=== PATIENT | female | born 1975 | race American Indian/Alaskan Native ===

== ENCOUNTER 2019-03-25 20:55 | Emergency (ER) | payer BC ==
[2019-03-25] MEDS ORDERED: ASPIRIN PO ONE (21:45)
--- NOTE | 2019-03-25 21:47 | Event Note ---
ED Screening Note Date of service: 03/25/19 Time: 21:43 ED Screening Note: This is a 44 y.o. F. that presents to the ER with chest pain, dizziness, and numbness on LUE. Patient states symptoms started when she got off work at 1900 tonight. She was driving and felt dizzy. PMH of DM2 and HTN This initial assessment/diagnostic orders/clinical plan/treatment(s) is/are subject to change based on patients health status, clinical progression and re- assessment by fellow clinical providers in the ED. Further treatment and workup at subsequent clinical providers discretion. Patient/guardian urged not to elope from the ED as their condition may be serious if not clinically assessed and managed. Initial orders include: Labs, ekg, & cxr
[2019-03-25 22:14] LABS: Basophils # (Auto) 0.1 K/mm3 (0.0-0.1); Basophils % (Auto) 1.1 % (0.0-1.8); Eosinophils # (Auto) 0.4 K/mm3 (0.0-0.4); Eosinophils % (Auto) 5.2 % (0.0-4.3); Hematocrit 40.1 % (30.3-42.9); Hemoglobin 13.6 gm/dl (10.1-14.3); Lymphocytes # (Auto) 3.6 K/mm3 (1.2-5.4); Lymphocytes % (Auto) 43.4 % (13.4-35.0); Mean Corpuscular HGB Conc 34 % (30-34); Mean Corpuscular Volume 89 fl (79-97); Monocytes # (Auto) 0.5 K/mm3 (0.0-0.8); Monocytes % (Auto) 6.5 % (0.0-7.3); Platelet Count 311 K/mm3 (140-440); Red Blood Count 4.53 M/mm3 (3.65-5.03)
[2019-03-25 22:30] LABS: BUN/Creatinine Ratio 18; Blood Urea Nitrogen 11 mg/dL (7-17); Calcium 9.2 mg/dL (8.4-10.2); Hemolysis Index 0
--- NOTE | 2019-03-25 22:46 | XRay Report ---
CHEST 1 VIEW INDICATION / CLINICAL INFORMATION: Chest Pain. COMPARISON: None available. FINDINGS: SUPPORT DEVICES: None. HEART / MEDIASTINUM: No significant abnormality. LUNGS / PLEURA: No significant pulmonary or pleural abnormality. No pneumothorax. ADDITIONAL FINDINGS: No significant additional findings. IMPRESSION: 1. No acute findings. Signer Name: Leo Hwang MD Signed: 03/25/2019 10:41 PM Workstation Name: [id number]
[2019-03-25] MEDS ORDERED: LOPRESSOR PO ONE (23:57)
[2019-03-26] MEDS ORDERED: ASPIRIN ONE (00:25)
--- NOTE | 2019-03-26 01:38 | Emergency Department Report ---
ED General Adult HPI - General Chief complaint: Chest Pain Stated complaint: CX PAIN /LT SIDE NUMBNESS Time Seen by Provider: 03/25/19 21:43 Source: patient Mode of arrival: Ambulatory Limitations: No Limitations - History of Present Illness Initial comments: Patient is a 44-year-old [place] female who has a past medical history of hypertension who is presenting with some chest discomfort. Patient states after leaving work today she started having some numbness in the left hand which she states should not of happened since she had a surgery for carpal tunnel some time ago. Patient states shortly afterwards she started having some shortness of breath and tightness in the chest. She states that she felt as though her heart was fluttering. Patient states she has been slightly not going pliant with her hydrochlorothiazide states she did take it last 2 days. She denies cough nausea vomiting diarrhea. Patient's states the fluttering sensation is been constant for the last several hours. - Related Data Allergies Allergy/AdvReac Type Severity Reaction Status Date / Time codeine Allergy Unknown Verified 03/25/19 21:03 Sulfa (Sulfonamide Allergy Unknown Verified 03/25/19 21:03 Antibiotics) ED Review of Systems ROS: Stated complaint: CX PAIN /LT SIDE NUMBNESS Other details as noted in HPI Comment: All other systems reviewed and negative ED Past Medical Hx - Past Medical History Previous Medical History?: Yes Hx Hypertension: Yes Hx Diabetes: Yes Additional medical history: LEFT WRIST - Surgical History Past Surgical History?: No - Social History Smoking Status: Never Smoker Substance Use Type: None ED Physical Exam - General Limitations: No Limitations General appearance: alert, in no apparent distress - Head Head exam: Present: atraumatic, normocephalic - Eye Eye exam: Present: normal appearance, PERRL, EOMI - ENT ENT exam: Present: mucous membranes moist - Neck Neck exam: Present: normal inspection - Respiratory Respiratory exam: Present: normal lung sounds bilaterally. Absent: respiratory distress, wheezes, rales, rhonchi - Cardiovascular Cardiovascular Exam: Present: regular rate, normal rhythm, normal heart sounds. Absent: systolic murmur, diastolic murmur, rubs, gallop - GI/Abdominal GI/Abdominal exam: Present: soft, normal bowel sounds. Absent: distended, tenderness, guarding, rebound, rigid - Extremities Exam Extremities exam: Present: normal inspection - Back Exam Back exam: Present: normal inspection - Neurological Exam Neurological exam: Present: alert, oriented X3 - Psychiatric Psychiatric exam: Present: normal affect, normal mood - Skin Skin exam: Present: warm, dry, intact, normal color. Absent: rash ED Course Vital Signs 03/25/19 03/26/19 03/26/19 21:31 00:15 00:30 Temperature 97.9 F 97.9 F Pulse Rate 75 68 68 Respiratory 18 12 Rate Blood Pressure 173/100 132/72 Blood Pressure 138/72 [Left] O2 Sat by Pulse 99 100 Oximetry ED Medical Decision Making - Lab Data Result diagrams: 03/25/19 21:48 03/25/19 21:48 Lab Results 03/25/19 03/25/19 03/26/19 Range/Units 21:48 21:48 00:20 WBC 8.2 (4.5-11.0) K/mm3 RBC 4.53 (3.65-5.03) M/mm3 Hgb 13.6 (10.1-14.3) gm/dl Hct 40.1 (30.3-42.9) % MCV 89 (79-97) fl MCH 30 (28-32) pg MCHC 34 (30-34) % RDW 14.0 (13.2-15.2) % Plt Count 311 (140-440) K/mm3 Lymph % (Auto) 43.4 H (13.4-35.0) % [place] % (Auto) 6.5 (0.0-7.3) % Eos % (Auto) 5.2 H (0.0-4.3) % Baso % (Auto) 1.1 (0.0-1.8) % Lymph # 3.6 (1.2-5.4) K/mm3 [place] # 0.5 (0.0-0.8) K/mm3 Eos # 0.4 (0.0-0.4) K/mm3 Baso # 0.1 (0.0-0.1) K/mm3 Seg Neutrophils % 43.8 (40.0-70.0) % Seg Neutrophils # 3.6 (1.8-7.7) K/mm3 Sodium 139 (137-145) mmol/L Potassium 3.8 (3.6-5.0) mmol/L Chloride 94.2 L (98-107) mmol/L Carbon Dioxide 29 (22-30) mmol/L Anion Gap 20 mmol/L BUN 11 (7-17) mg/dL Creatinine 0.6 L (0.7-1.2) mg/dL Estimated GFR > 60 ml/min BUN/Creatinine Ratio 18 % Glucose 130 H (65-100) mg/dL Calcium 9.2 (8.4-10.2) mg/dL Troponin T < 0.010 < 0.010 (0.00-0.029) ng/mL - EKG Data -: EKG Interpreted by [facility] EKG shows normal: sinus rhythm, axis, intervals, QRS complexes, ST-T waves Rate: normal - EKG Data Interpretation: normal EKG - Radiology Data [facility] [address] [place] [address] XRay Report Signed Patient: JOE OVIEDO MR#: [id number] : 1975 Acct:[id number] Age/Sex: 44 / F ADM Date: 03/25/19 Loc: ED Attending Dr: Ordering Physician: EUFEMIA RICO Date of Service: 03/25/19 Procedure(s): XR chest 1V ap Accession Number(s): [id number] cc: EUFEMIA RICO Fluoro Time In Minutes: CHEST 1 VIEW INDICATION / CLINICAL INFORMATION: Chest Pain. COMPARISON: None available. FINDINGS: SUPPORT DEVICES: None. HEART / MEDIASTINUM: No significant abnormality. LUNGS / PLEURA: No significant pulmonary or pleural abnormality. No pneumothorax. ADDITIONAL FINDINGS: No significant additional findings. IMPRESSION: 1. No acute findings. Signer Name: Leo Hwang MD Signed: 03/25/2019 10:41 PM Workstation Name: [id number] Transcribed By: HERNANDEZ Dictated By: Leo Hwang MD Electronically Authenticated By: Leo Hwang MD Signed Date/Time: 03/25/192240 DD/ 40 TD/TT: - Medical Decision Making Is a 44-year-old -[place] female who is presenting with some left hand numbness as well as some chest discomfort with shortness of breath. Patient's had 2 negative troponins as a EKG is that is within normal limits. Patient will have close follow-up with cardiology next several days. Patient's heart score is 1. Patient stable for discharge. Critical care attestation.: If time is entered above; I have spent that time in minutes in the direct care of this critically ill patient, excluding procedure time. ED Disposition Clinical Impression: Atypical chest pain Disposition: DC-01 TO HOME OR SELFCARE Is pt being admited?: No Does the pt Need Aspirin: No Condition: Stable Instructions: Chest Pain (ED) Referrals: CHARAN BYRD MD [Primary Care Provider] - 3-5 Days LYNN JENKINS MD [Staff Physician] - 3-5 Days Time of Disposition: 01:39
[2019-03-26 02:04] VITALS: BP 113/62
== END 2019-03-26 01:50 | disposition home or self-care (01) ==
LOC: ED 20:55
DX: R07.89 Other chest pain (principal); R20.0 Anesthesia of skin; R06.02 Shortness of breath; Z88.6 Allergy status to analgesic agent; Z88.2 Allergy status to sulfonamides
CPT/HCPCS: 36415; 71045; 80048; 84484; 85025; 93005; 93010